=== PATIENT | female | born 1965 | race Caucasian/White ===

== ENCOUNTER 2024-02-29 18:31 | Emergency (ER) | payer OTHER ==
[~2024-02-29] VITALS: Ht 170.2 cm; Wt 86.5 kg
[2024-02-29] MEDS ORDERED: ACETAMINOPHEN 325 MG TAB PO ONE (19:15)
[2024-02-29 19:45] VITALS: BP 168/87
== END 2024-02-29 19:45 | disposition home or self-care (01) ==
LOC: ED 18:31
DX: S63.501A Unspecified sprain of right wrist, initial encounter (principal); W01.0XXA Fall on same level from slipping, tripping and stumbling without subsequent striking against object, initial encounter; Z88.6 Allergy status to analgesic agent; Z88.1 Allergy status to other antibiotic agents
CPT/HCPCS: 73110; 99283